=== PATIENT | female | born 1960 ===

== ENCOUNTER 2021-05-30 09:46 | Day surgery (SDC) | payer OTHER ==
[~2021-05-30] VITALS: Ht 157.5 cm; Wt 67.3 kg
[~2021-05-30 09:46] MED LIST: Acerola C500 MG; CALCIUM CARBON500 M1; CYCL0.05OP; DOTTI1 EA18; EPIPEN0.3 MG/0.3; ESTRADIOL0.5 MG; FLONASE ALLERG9.9 ML; LORA1SY; METF500; MONT10T; OMEP20ER; PSEU120ER; TRAZ50; VENL150ER
== END 2021-05-30 10:53 | disposition home or self-care (01) ==
LOC: ORSCSDS 09:46
PROVIDERS: Internal Medicine Gastroenterology
PROC: 0DB68ZX Excision of Stomach, Via Natural or Artificial Opening Endoscopic, Diagnostic (ICD-10-PCS; principal; 2021-05-30 11:00)
PROC: 0DB58ZX Excision of Esophagus, Via Natural or Artificial Opening Endoscopic, Diagnostic (ICD-10-PCS; principal; 2021-05-30 11:00)
DX: K21.9 Gastro-esophageal reflux disease without esophagitis (principal); B96.81 Helicobacter pylori [H. pylori] as the cause of diseases classified elsewhere; F32.A Depression, unspecified; K29.70 Gastritis, unspecified, without bleeding; Z79.899 Other long term (current) drug therapy
CPT/HCPCS: 88305; 88342; J2704; J7120